=== PATIENT | female | born 1930 | race Caucasian/White ===

== ENCOUNTER 2019-12-31 08:14 | Emergency (ER) | payer MEDICARE ==
[~2019-12-31] VITALS: Ht 154.9 cm; Wt 50.0 kg
--- NOTE | 2019-12-31 08:28 | NUR ---
THIS IS A 89 YO F BIB EMS FROM HOME W/ C/O INTERMITTENT DIARRHEA 2-3X/DAY AND INTERMITTENT GENERALIZED ABD PAIN 5/10 X1 WEEK. PT DENIES N/V/RECENT ABX USE. PT IS HYPERTENSIVE, OTHER VS WDL. PT REPORTS SHE THINKS SHE HAS COVID BECAUSE SHE WENT SHOPPING WITHOUT GLOVES 1 WEEK AGO, DENIES FEVERS/COUGH/SOB/CHILLS/MUSCLEACHES/EXPOSURE TO KNOWN COVID PT. PT RESTING ON GURNEY W/ CALL LIGHT IN REACH, CONNECTED TO MONITORING. GLADIS SCHMIDT IN ROOM FOR ED EVAL. AWAITING ORDERS.
[2019-12-31] MEDS ORDERED: SODIUM CHLORIDE FLUSH 10ML SYR IVF ONE (08:30)
--- NOTE | 2019-12-31 08:40 | NUR ---
PT AMBULATED TO THE BATHROOM W/ A 1 PERSON ASSISTED. PROVIDED URINE SAMPLE. COLLECTED AND SENT TO LAB.
--- NOTE | 2019-12-31 08:41 | NUR ---
DAVID [phone]. PTS SPOUSE.
--- NOTE | 2019-12-31 08:50 | NUR ---
SPOKE TO PATIENTS SON HILARY MACIAS ON PHONE W/ PTS PERMISSION TO GIVE UPDATE.
[2019-12-31 08:52] LABS: MICROSCOPIC INDICATED
[2019-12-31 09:06] LABS: CULTURE INDICATED? YES
[2019-12-31 09:12] LABS: BASOPHILS # (AUTO) 0.03 x10^3/uL (0-0.1); BASOPHILS % (AUTO) 1 % (0-1); EOSINOPHILS # (AUTO) 0.02 x10^3/uL (0-0.4); EOSINOPHILS % (AUTO) 0 % (1-7); LYMPHOCYTES # (AUTO) 0.91 x10^3/uL (1-3.4); LYMPHOCYTES % (AUTO) 15 % (22-44); MD NO; MEAN CORPUSCULAR HEMOGLOBIN 31.5 pg (27.0-34.8); MEAN CORPUSCULAR HGB CONC 33.1 g/dL (32.4-35.8); MEAN CORPUSCULAR VOLUME 95.1 fL (80-100); MEAN PLATELET VOLUME 7.9 fL (7.4-10.4); MONOCYTES # (AUTO) 0.41 x10^3/uL (0.2-0.8); MONOCYTES % (AUTO) 7 % (2-9); NEUTROPHILS # (AUTO) 4.61 x10^3/uL (1.8-6.8); NEUTROPHILS % (AUTO) 77 % (42-75); PLATELET COUNT 334 x10^3/uL (130-400); RED BLOOD COUNT 4.66 x10^6/uL (3.82-5.3)
[2019-12-31 09:23] LABS: ALANINE AMINOTRANSFERASE 25 U/L (12-78); ALBUMIN 3.8 g/dL (3.4-5.0); ANION GAP 6 mmol/L (5-15); CALCIUM 8.7 mg/dL (8.5-10.1); CHLORIDE 109 mmol/L (98-107); CREATININE 0.66 mg/dL (0.55-1.02)
[2019-12-31 09:25] LABS: ALKALINE PHOSPHATASE 52 U/L (45-117); BILIRUBIN,TOTAL 0.9 mg/dL (0.2-1.0); TOTAL PROTEIN 7.1 g/dL (6.4-8.2)
--- NOTE | 2019-12-31 09:44 | NUR ---
PT RESTING ON [employer] W/ CALL LIGHT IN REACH, VSS. AWAITING CT.
--- NOTE | 2019-12-31 10:05 | NUR ---
CALL TO CT REGARDING DELAY, REPORTS THAT THIS PT IS NEXT IN LINE.
--- NOTE | 2019-12-31 10:11 | NUR ---
CT DELAYED; BIOPSY IN ONE ROOM; MYELOGRAM IN OTHER
--- NOTE | 2019-12-31 10:29 | NUR ---
PT TO CT.
--- NOTE | 2019-12-31 10:53 | NUR ---
HILARY MACIAS SON [phone] TO BE CALLED WHEN PT IS READY FOR DC.
--- NOTE | 2019-12-31 10:54 | NUR ---
PT BACK FROM CT. ALL TESTS RESULTED. PT IS UP FOR RECHECK AT THIS TIME.
[2019-12-31 11:00] VITALS: BP 135/60
--- NOTE | 2019-12-31 11:00 | NUR ---
PT IS CONVINCED THAT SHE HAS COVID SHE STATES "I JUST KNOW I HAVE IT". PT REQ TO BE TESTED. PT INFORMED THAT SHE IS LOW RISK SINCE SHE HAS BEEN SELF ISOLATING AT HOME AND HAS NOT DISPLAYED ANY SYMPTOMS. PT STATES THAT PEOPLE CAN HAVE IT AND NOT KNOW. INFORMED PT THOSE THOSE PEOPLE ARE USUALLY CONSIDERED STABLE AND WE WOULD INSTRUCT THEM TO CONTINUE TO SELF ISOLATE. PTS CONCERNS ADDRESSED WITH GLADIS SCHMIDT.
--- NOTE | 2019-12-31 11:10 | NUR ---
PTS SON CONTACTED TO [facility] PT.
[2019-12-31] MEDS ORDERED: OMNIPAQUE 350 MG/ML, 100ML BOTTLE ONE (11:26)
--- NOTE | 2019-12-31 11:41 | NUR ---
Patient given discharge instructions and they have confirmed that they understand the instructions. Patient ambulatory with steady gait.
== END 2019-12-31 11:42 | disposition home or self-care (01) ==
LOC: ED 11:10
DX: R10.84 Generalized abdominal pain (principal); R19.7 Diarrhea, unspecified; I10 Essential (primary) hypertension; E78.5 Hyperlipidemia, unspecified; Z90.710 Acquired absence of both cervix and uterus; Z88.1 Allergy status to other antibiotic agents
CPT/HCPCS: 36415; 74177; 80053; 81001; 85025; 87086; 99285; Q9967